=== PATIENT | male | born 1995 | race Caucasian/White ===

== ENCOUNTER 2017-12-29 03:56 | Emergency (ER) | payer BC ==
[~2017-12-29] VITALS: Ht 182.9 cm; Wt 68.2 kg
[2017-12-29 04:00] VITALS: BP 138/75; TEMP 98.4
[2017-12-29] MEDS ORDERED: RITALIN 20M20 MG/TAB PO (04:35)
[2017-12-29] MEDS ORDERED: PERCOCET 325 MG1 TA2 PO (04:37)
[2017-12-29 05:55] VITALS: PULSE 85
== END 2017-12-29 05:55 | disposition home or self-care (01) ==
LOC: COL.ER 03:56
DX: S62.304A Unspecified fracture of fourth metacarpal bone, right hand, initial encounter for closed fracture (principal); S62.306A Unspecified fracture of fifth metacarpal bone, right hand, initial encounter for closed fracture; W22.8XXA Striking against or struck by other objects, initial encounter; Y92.410 Unspecified street and highway as the place of occurrence of the external cause
CPT/HCPCS: Q4021

== ENCOUNTER 2018-06-14 16:13 | Emergency (ER) | payer BC ==
[~2018-06-14] VITALS: Ht 185.4 cm; Wt 77.3 kg
[~2018-06-14 16:13] MED LIST: PERCOCET 325 MG1 TA2 PO; RITALIN 20M20 MG/TAB PO
[2018-06-14] MEDS ORDERED: NORCO 325 MG-51 TAB PO (16:53)
[2018-06-14 17:28] VITALS: BP 115/72; PULSE 72; TEMP 97.7
== END 2018-06-14 17:32 | disposition home or self-care (01) ==
LOC: COL.ER 16:13
DX: S62.306A Unspecified fracture of fifth metacarpal bone, right hand, initial encounter for closed fracture (principal); F90.9 Attention-deficit hyperactivity disorder, unspecified type; W19.XXXA Unspecified fall, initial encounter; Y92.009 Unspecified place in unspecified non-institutional (private) residence as the place of occurrence of the external cause
CPT/HCPCS: Q4021

== ENCOUNTER → 2020-03-28 | Outpatient (REF) ==
[~2020-03-28] MED LIST changes: +NORCO 325 MG-51 TAB PO
== END ==
LOC: WSOH 08:15
DX: R03.0 Elevated blood-pressure reading, without diagnosis of hypertension (principal); Z97.3 Presence of spectacles and contact lenses